=== PATIENT | male | born 1985 | race Caucasian/White ===

== ENCOUNTER 2020-12-06 02:15 | Emergency (ER) | payer SELFPAY ==
[~2020-12-06] VITALS: Ht 177.8 cm; Wt 104.3 kg
[2020-12-06 02:25] VITALS: BP 134/72
[2020-12-06 04:14] LABS: APPEARANCE,URINE CLEAR (CLEAR); BILIRUBIN,URINE NEGATIVE (NEGATIVE); BLOOD, URINE 1+ (NEGATIVE); COLOR,URINE YELLOW (YELLOW); LEUKOCYTE ESTERASE ,URINE NEGATIVE (NEGATIVE); NITRITE, URINE NEGATIVE (NEGATIVE); UGLUCOSE NEGATIVE (NEGATIVE)
[2020-12-06] MEDS ORDERED: CLOT1CRE TP (04:17)
[2020-12-06 04:23] LABS: WBC,URINE 0-5 /HPF (0-5)
[2020-12-06 04:30] VITALS: BP 110/62
== END 2020-12-06 04:30 | disposition home or self-care (01) ==
LOC: MED 02:15
DX: N48.1 Balanitis (principal); Z79.899 Other long term (current) drug therapy
CPT/HCPCS: 81001; 82948; 99283

== ENCOUNTER 2021-10-24 07:34 | Emergency (ER) | payer MEDICAID ==
[~2021-10-24] VITALS: Ht 175.3 cm; Wt 98.9 kg
[~2021-10-24 07:34] MED LIST: CLOT1CRE TP
[2021-10-24 07:36] VITALS: BP 135/99
[2021-10-24] MEDS ORDERED: FAMOTIDINE 20 MG/2 ML VIAL IVP ONE (07:50)
[2021-10-24] MEDS ORDERED: MORPHINE SULFATE 4 MG/ML SYR IVP ONE (07:50)
[2021-10-24] MEDS ORDERED: NACL 0.9% 1,000 ML IV SCH (07:50)
[2021-10-24] MEDS ORDERED: ONDANSETRON 4 MG/2 ML VIAL IVP ONE (07:50)
[2021-10-24 08:30] LABS: BASOPHILS # (AUTO) 0.1 K/uL (0.00-0.22); BASOPHILS % (AUTO) 0.4 % (0.0-2.0); EOSINOPHILS # (AUTO) 0.1 K/uL (0-0.4); EOSINOPHILS % (AUTO) 0.4 % (0.0-4.0); HEMATOCRIT 36.3 % (36-52); HEMOGLOBIN 12.1 g/dL (12.0-18.0); MEAN CORPUSCULAR HEMOGLOBIN 30 pg (27-31); MEAN CORPUSCULAR HGB CONC 33 g/dL (33-37); MEAN CORPUSCULAR VOLUME 89.2 fL (80-94); MONOCYTES # (AUTO) 1.3 K/uL (0.8-1.0); MONOCYTES % (AUTO) 7.1 % (1.7-9.3); NEUTROPHILS # (AUTO) 14.8 K/uL (1.8-7.7); NEUTROPHILS % (AUTO) 81.1 % (42.2-75.2); PLATELET COUNT (AUTO) 390 K/uL (140-450); RED BLOOD CELL COUNT(AUTO) 4.07 MIL/uL (4.20-6.10); RED CELL DISTRIBUTION WIDTH 13.3 % (11.6-13.7); WHITE BLOOD COUNT (AUTO) 18.3 K/uL (4.8-10.8)
[2021-10-24 08:48] LABS: ALBUMIN 3.4 g/dL (3.4-5.0); ANION GAP 9.6 (8-16); CARBON DIOXIDE 33.5 mmol/L (21-32); POTASSIUM 4.1 mmol/L (3.5-5.1); TOTAL BILIRUBIN 0.4 mg/dL (0.0-1.0)
[2021-10-24] MEDS ORDERED: ONDA-188 PO (10:52)
[2021-10-24] MEDS ORDERED: ACET-8386 PO (10:52)
[2021-10-24 10:57] VITALS: BP 124/70
== END 2021-10-24 10:57 | disposition home or self-care (01) ==
LOC: MED 07:34
DX: K80.20 Calculus of gallbladder without cholecystitis without obstruction (principal); D72.829 Elevated white blood cell count, unspecified; F12.90 Cannabis use, unspecified, uncomplicated; Z79.899 Other long term (current) drug therapy
CPT/HCPCS: 76705; 80053; 83690; 85025; 96361; 96374; 96375; 99284; J2270; J2405; J3490; J7030; Q0092

== ENCOUNTER 2021-12-12 23:40 | Emergency (ER) | payer MEDICAID ==
[~2021-12-12] VITALS: Ht 175.3 cm; Wt 102.5 kg
[~2021-12-12 23:40] MED LIST changes: +ACET-8386 PO; +ONDA-188 PO
[2021-12-12 23:54] VITALS: BP 130/90
--- NOTE | 2021-12-12 23:54 | NUR ---
to bed ambulatory
[2021-12-12] MEDS ORDERED: KETOROLAC 30 MG/ML VIAL IVP ONE (23:55)
[2021-12-12] MEDS ORDERED: ONDANSETRON 4 MG/2 ML VIAL IVP ONE (23:55)
[2021-12-12] MEDS ORDERED: NACL 0.9% 1,000 ML IV SCH (23:55)
--- NOTE | 2021-12-13 | NUR ---
PT AMBULATED TO ED 9, PT PLACED ON MONITOR, PT C/O EPIGASTRIC PAIN WITH N/V X 2 DAYS, PT UNABLE TO EAT OR DRINK X FEW DAYS. NKDA, DENIES ANY MEDICAL HISTORY
[2021-12-13 00:21] LABS: BASOPHILS # (AUTO) 0.1 K/uL (0.00-0.22); EOSINOPHILS # (AUTO) 0.1 K/uL (0-0.4); EOSINOPHILS % (AUTO) 0.5 % (0.0-4.0); HEMATOCRIT 34.8 % (36-52); HEMOGLOBIN 11.3 g/dL (12.0-18.0); LYMPHOCYTES # (AUTO) 1.8 K/uL (2.0-11.5); LYMPHOCYTES % (AUTO) 14.2 % (20.5-51.1); MEAN CORPUSCULAR HEMOGLOBIN 25 pg (27-31); MEAN CORPUSCULAR HGB CONC 32 g/dL (33-37); MEAN CORPUSCULAR VOLUME 77.9 fL (80-94); MONOCYTES # (AUTO) 0.9 K/uL (0.8-1.0); MONOCYTES % (AUTO) 7.2 % (1.7-9.3); NEUTROPHILS # (AUTO) 9.5 K/uL (1.8-7.7); NEUTROPHILS % (AUTO) 77.1 % (42.2-75.2); PLATELET COUNT (AUTO) 590 K/uL (140-450); RED BLOOD CELL COUNT(AUTO) 4.47 MIL/uL (4.20-6.10); RED CELL DISTRIBUTION WIDTH 17.4 % (11.6-13.7); WHITE BLOOD COUNT (AUTO) 12.3 K/uL (4.8-10.8)
[2021-12-13 00:39] LABS: ALBUMIN 3.5 g/dL (3.4-5.0); ANION GAP 10.2 (8-16); CARBON DIOXIDE 34.9 mmol/L (21-32); CREATININE 1.1 mg/dL (0.6-1.3); POTASSIUM 4.1 mmol/L (3.5-5.1); TOTAL BILIRUBIN 0.2 mg/dL (0.0-1.0)
--- NOTE | 2021-12-13 00:46 | NUR ---
PT RETURN FROM ULTRASOUND
[2021-12-13] MEDS ORDERED: KETOROLAC 30 MG/ML VIAL ONE (00:56)
[2021-12-13 01:06] LABS: APPEARANCE,URINE SL CLOUDY (CLEAR); BILIRUBIN,URINE NEGATIVE (NEGATIVE); BLOOD, URINE NEGATIVE (NEGATIVE); COLOR,URINE YELLOW (YELLOW); LEUKOCYTE ESTERASE ,URINE NEGATIVE (NEGATIVE); NITRITE, URINE NEGATIVE (NEGATIVE); PH,URINE 7.5 (5.0-9.0); UGLUCOSE NEGATIVE (NEGATIVE)
--- NOTE | 2021-12-13 02:00 | NUR ---
PT RESTING IN BED, DENIES ANY DISCOMFORT AT PRESENT TIME.
[2021-12-13] MEDS ORDERED: HYDR-5080 PO (04:51)
[2021-12-13 05:00] VITALS: BP 126/67
--- NOTE | 2021-12-13 05:00 | NUR ---
Patient discharged with v/s stable. Written and verbal after care instructions given and explained. Patient verbalized understanding. Ambulatory with steady gait. All questions addressed prior to discharge. Advised to follow up with PMD.
== END 2021-12-13 05:00 | disposition home or self-care (01) ==
LOC: MED 23:40
DX: K80.20 Calculus of gallbladder without cholecystitis without obstruction (principal); R11.2 Nausea with vomiting, unspecified; Z79.891 Long term (current) use of opiate analgesic; Z79.899 Other long term (current) drug therapy
CPT/HCPCS: 36415; 74176; 76705; 80053; 81003; 83690; 85025; 96361; 96374; 96375; 99284; J1885; J2405; J7030; Q0092

== ENCOUNTER 2022-07-22 13:18 | Emergency (ER) | payer SELFPAY ==
[~2022-07-22] VITALS: Ht 175.3 cm; Wt 86.2 kg
[~2022-07-22 13:18] MED LIST changes: -ACET-8386 PO; +ACET-8905 PO; +HYDR-5080 PO
[2022-07-22 14:39] VITALS: BP 123/84
[2022-07-22 15:35] LABS: BASOPHILS # (AUTO) 0.1 K/uL (0.00-0.22); BASOPHILS % (AUTO) 0.6 % (0.0-2.0); EOSINOPHILS % (AUTO) 0.4 % (0.0-4.0); HEMATOCRIT 34.4 % (36-52); LYMPHOCYTES # (AUTO) 3.8 K/uL (2.0-11.5); LYMPHOCYTES % (AUTO) 34.6 % (20.5-51.1); MEAN CORPUSCULAR HEMOGLOBIN 26 pg (27-31); MEAN CORPUSCULAR HGB CONC 32 g/dL (33-37); MEAN CORPUSCULAR VOLUME 82.4 fL (80-94); MONOCYTES # (AUTO) 0.6 K/uL (0.8-1.0); MONOCYTES % (AUTO) 5.3 % (1.7-9.3); NEUTROPHILS # (AUTO) 6.5 K/uL (1.8-7.7); NEUTROPHILS % (AUTO) 59.1 % (42.2-75.2); PLATELET COUNT (AUTO) 343 K/uL (140-450); RED BLOOD CELL COUNT(AUTO) 4.18 MIL/uL (4.20-6.10); RED CELL DISTRIBUTION WIDTH 20.8 % (11.6-13.7); WHITE BLOOD COUNT (AUTO) 11.1 K/uL (4.8-10.8)
--- NOTE | 2022-07-22 15:36 | NUR ---
Pt approached me in lobby and states his vomit is now "red" and he had "dark" colored stool.
[2022-07-22 15:48] LABS: ALBUMIN 3.4 g/dL (3.4-5.0); ANION GAP 11.1 (8-16); CARBON DIOXIDE 28.5 mmol/L (21-32); POTASSIUM 4.6 mmol/L (3.5-5.1); TOTAL BILIRUBIN 0.2 mg/dL (0.0-1.0)
[2022-07-22] MEDS ORDERED: FAMOTIDINE 20 MG TAB PO ONE (16:15)
[2022-07-22] MEDS ORDERED: ONDANSETRON 4 MG ODT PO ONE (16:15)
[2022-07-22] MEDS ORDERED: ALUMINUM HYD/MAG/SIMETHICONE 30 ML UDC PO ONE (16:15)
[2022-07-22] MEDS ORDERED: FAMO-90 PO (16:26)
[2022-07-22] MEDS ORDERED: SUCR1TAB35 PO (16:26)
[2022-07-22] MEDS ORDERED: ONDA-188 PO (16:26)
[2022-07-22 16:33] VITALS: BP 123/84
--- NOTE | 2022-07-22 16:33 | NUR ---
Patient discharged with v/s stable. Written and verbal after care instructions FOR PEPCID [employer] given and explained. Patient alert, oriented and verbalized understanding of instructions. Ambulatory with steady gait. All questions addressed prior to discharge. ID band removed. Patient advised to follow up with PMD. Rx of PEPCID,ZOFRAN ODT AND CARAFATE given. Opportunity to ask questions provided and answered.
== END 2022-07-22 16:33 | disposition home or self-care (01) ==
LOC: MED 13:18
DX: K27.9 Peptic ulcer, site unspecified, unspecified as acute or chronic, without hemorrhage or perforation (principal); Z79.899 Other long term (current) drug therapy
CPT/HCPCS: 36415; 80053; 83690; 85025; 99284; Q0162

== ENCOUNTER 2023-01-19 15:39 | Inpatient (IN) | payer MEDICAID ==
[~2023-01-19] VITALS: Ht 175.3 cm; Wt 84.0 kg
[2023-01-19] VITALS (15 sets, daily range): BP systolic 30–160; BP diastolic 17–69; PULSE 88–130; RESP 25–43; TEMP 95.5–97.4; O2SAT 61–98
[~2023-01-19 15:39] MED LIST changes: +FAMO-90 PO; +SUCR1TAB35 PO
[2023-01-19] MEDS ORDERED: ALBUTEROL SULFATE/IPRATROPIU 3 ML SOL IH ONE (16:10)
[2023-01-19] MEDS ORDERED: PROPOFOL 1000 MG/100 ML PREMIX 100 ML IV STA (17:34)
[2023-01-19] MEDS ORDERED: INTUBATION KIT MC ONE (17:35)
[2023-01-19] MEDS ORDERED: SUCCINYLCHOLINE CHLORIDE 200 MG/10 ML VIAL IVP ONE (17:35)
[2023-01-19] MEDS ORDERED: ETOMIDATE 20 MG/10 ML VIAL IVP ONE (17:35)
[2023-01-19 17:38] LABS: ALBUMIN 2.4 g/dL (3.4-5.0); ANION GAP 33.3 (8-16); CALCIUM 10.9 mg/dL (8.5-10.1); CARBON DIOXIDE 12.5 mmol/L (21-32); POTASSIUM 4.8 mmol/L (3.5-5.1); TOTAL BILIRUBIN 0.8 mg/dL (0.0-1.0); TOTAL PROTEIN, SERUM 7.5 g/dL (6.4-8.2)
[2023-01-19 17:45] LABS: RED BLOOD CELL COUNT(AUTO) 5.94 MIL/uL (4.20-6.10); WHITE BLOOD COUNT (AUTO) 21.6 K/uL (4.8-10.8)
[2023-01-19 17:46] LABS: HEMATOCRIT 42.9 % (36-52); HEMOGLOBIN 12.1 g/dL (12.0-18.0); MEAN CORPUSCULAR HEMOGLOBIN 20 pg (27-31); MEAN CORPUSCULAR HGB CONC 28 g/dL (33-37); MEAN CORPUSCULAR VOLUME 72.3 fL (80-94); PLATELET COUNT (AUTO) 711 K/uL (140-450); RED CELL DISTRIBUTION WIDTH 20.7 % (11.6-13.7)
[2023-01-19 17:47] LABS: LYMPHOCYTES % (MANUAL) 42 % (20-46); METAMYELOCYTES % 1 % (0-0); MONOCYTES % (MANUAL) 3 % (5-12); PLATELET ESTIMATE INCREASED; PROMYELOCYTES % 3 % (0-0)
[2023-01-19 17:54] LABS: CREATININE 4.5 mg/dL (0.6-1.3)
[2023-01-19] MEDS ORDERED: ENOXAPARIN 80 MG/0.8 ML SYR SUBQ ONE (18:00)
[2023-01-19] MEDS ORDERED: NACL 0.9% 2,000 ML IV SCH (18:05)
[2023-01-19] MEDS ORDERED: EPINEPHrine 1 mg/mL 3 MG in DEXTROSE 5% 250 ML IV ONE (19:05)
[2023-01-19 19:15] LABS: LACTIC ACID 16.4 mmol/L (0.4-2.0)
[2023-01-19] MEDS ORDERED: EPINEPHrine 1 MG/ML AMP ONE ×6 (19:21→23:00)
[2023-01-19] MEDS ORDERED: NOREPINEPHRINE 4 MG/4 ML VIAL IV ONE ×4 (19:38→23:36)
[2023-01-19] MEDS ORDERED: OCTREOTIDE ACETATE 1.25 MG in NACL 0.9% 250 ML IV SCH ×2 (19:45→22:25)
[2023-01-19] MEDS ORDERED: NOREPINEPHRINE 4 MG in DEXTROSE 5% 250 ML IV ONE (19:55)
[2023-01-19] MEDS ORDERED: cefTRIAXone 1,000 MG VIAL ONE (20:49)
[2023-01-19] MEDS ORDERED: PIPERACILLIN/TAZOBACTAM 2.25 GM VIAL IV ONE (21:28)
[2023-01-19] MEDS ORDERED: VASOPRESSIN 40 UNITS in NACL 0.9% 250 ML IV PRN (22:00)
[2023-01-19] MEDS: NOREPINEPHRINE 8 MG in DEXTROSE 5% 250 ML IV PRN ×2 (22:03→23:51)
[2023-01-19] MEDS: PIPERACILLIN/TAZOBACTAM 2.25 GM in DEXTROSE 5% 50 ML IV SCH (22:04)
[2023-01-19] MEDS: EPINEPHrine 1 mg/mL 3 MG in DEXTROSE 5% 250 ML IV PRN ×3 (22:07→23:05)
[2023-01-19] MEDS ORDERED: OCTREOTIDE ACETATE 1000 MCG/5 ML VIAL ONE (22:10)
[2023-01-19] MEDS ORDERED: VASOPRESSIN 20 UNITS/ML VIAL ONE (22:37)
[2023-01-19] MEDS ORDERED: PHENYLEPHRINE 10 MG/ML VIAL ONE (23:32)
[2023-01-19] MEDS: PHENYLEPHRINE 20 MG in NACL 0.9% 250 ML IV PRN (23:48)
[2023-01-20] VITALS (22 sets, daily range): BP systolic 28–157; BP diastolic 15–74; PULSE 76–119; RESP 18–37; TEMP 95.3–96.5; O2SAT 32–100
[2023-01-20 00:31] LABS: FLU A ANTIGEN negative (NEGATIVE); FLU B ANTIGEN NEGATIVE (NEGATIVE)
[2023-01-20] MEDS: EPINEPHrine 1 mg/mL 3 MG in DEXTROSE 5% 250 ML IV PRN ×11 (00:33→10:40)
[2023-01-20] MEDS: NOREPINEPHRINE 8 MG in DEXTROSE 5% 250 ML IV PRN ×6 (01:47→09:54)
[2023-01-20] MEDS ORDERED: PHENYLEPHRINE 10 MG/ML VIAL ONE ×2 (02:17→03:25)
[2023-01-20] MEDS: PHENYLEPHRINE 20 MG in NACL 0.9% 250 ML IV PRN ×5 (02:24→10:40)
[2023-01-20] MEDS ORDERED: PIPERACILLIN/TAZOBACTAM 2.25 GM VIAL IV ONE (05:22)
[2023-01-20] MEDS: PIPERACILLIN/TAZOBACTAM 2.25 GM in DEXTROSE 5% 50 ML IV SCH (05:33)
[2023-01-20 05:58] LABS: EOSINOPHILS # (AUTO) 0.1 K/uL (0-0.4); EOSINOPHILS % (AUTO) 0.5 % (0.0-4.0); HEMATOCRIT 29.9 % (36-52); LYMPHOCYTES # (AUTO) 12.9 K/uL (2.0-11.5); LYMPHOCYTES % (AUTO) 50.9 % (20.5-51.1); MEAN CORPUSCULAR HEMOGLOBIN 21 pg (27-31); MEAN CORPUSCULAR HGB CONC 24 g/dL (33-37); MEAN CORPUSCULAR VOLUME 87.9 fL (80-94); MONOCYTES # (AUTO) 12.2 K/uL (0.8-1.0); NEUTROPHILS # (AUTO) 0.2 K/uL (1.8-7.7); NEUTROPHILS % (AUTO) 0.6 % (42.2-75.2); PLATELET COUNT (AUTO) 235 K/uL (140-450); RED BLOOD CELL COUNT(AUTO) 3.41 MIL/uL (4.20-6.10); RED CELL DISTRIBUTION WIDTH 21.4 % (11.6-13.7)
[2023-01-20 06:06] LABS: WHITE BLOOD COUNT (AUTO) 25.4 K/uL (4.8-10.8)
[2023-01-20 06:25] LABS: ANION GAP 41.2 (8-16); CALCIUM 10.1 mg/dL (8.5-10.1)
[2023-01-20 06:28] LABS: CARBON DIOXIDE 7.4 mmol/L (21-32)
[2023-01-20 06:30] LABS: POTASSIUM 9.6 mmol/L (3.5-5.1)
[2023-01-20] MEDS ORDERED: CALCIUM CHLORIDE 10% 1,000 MG in NACL 0.9% 100 ML IV SCH (07:35)
[2023-01-20] MEDS ORDERED: SODIUM BICARBONATE 8.4% PFS 50 MEQ/50 ML SYR IVP SCH ×3 (07:35→10:52)
[2023-01-20] MEDS ORDERED: SODIUM BICARBONATE 8.4% PFS 50 MEQ/50 ML SYR IVP ONE (08:00)
[2023-01-20] MEDS ORDERED: SODIUM BICARBONATE 8.4% 100 MEQ in DEXTROSE 5% 1,000 ML IV SCH (08:10)
[2023-01-20] MEDS ORDERED: VANCOMYCIN PER PHARMACY MC PRN ×2 (08:15→09:35)
[2023-01-20] MEDS ORDERED: HYDROCORTISONE NA SUCC 100 MG/2 ML VIAL IV SCH ×2 (08:29→12:00)
[2023-01-20] MEDS ORDERED: SODIUM BICARBONATE 8.4% 150 MEQ in DEXTROSE 5% 1,000 ML IV SCH (08:31)
[2023-01-20] MEDS ORDERED: INSULIN REGULAR, HUMAN 100 UNIT/ML VIAL SUBQ STA (08:51)
[2023-01-20] MEDS ORDERED: DEXTROSE 50% 50 ML SYR IVP SCH (08:51)
[2023-01-20] MEDS ORDERED: VANCOMYCIN 1.25GM PREMIX 250 ML IV SCH (09:00)
[2023-01-20] MEDS ORDERED: INSULIN REGULAR, HUMAN 100 UNIT/ML VIAL IVP SCH (09:05)
[2023-01-20] MEDS ORDERED: HYDROcodone/APAP 7.5/325 MG 1 TAB PO PRN (09:15)
[2023-01-20] MEDS ORDERED: ACETAMINOPHEN 325 MG TAB PO PRN (09:15)
[2023-01-20] MEDS ORDERED: MAG SULF 2000 MG/WATER PREMIX 50 ML IV PRN (09:15)
[2023-01-20] MEDS ORDERED: POTASSIUM CHLORIDE 10 MEQ TABER PO PRN (09:15)
[2023-01-20] MEDS ORDERED: NACL 0.9% 1,000 ML IV SCH (09:15)
[2023-01-20] MEDS ORDERED: ONDANSETRON 4 MG/2 ML VIAL IVP PRN (09:15)
[2023-01-20] MEDS ORDERED: NOREPINEPHRINE 16 MG in DEXTROSE 5% 250 ML IV PRN (09:40)
[2023-01-20] MEDS ORDERED: EPINEPHrine 1 mg/mL 10 MG in DEXTROSE 5% 250 ML IV PRN (10:40)
[2023-01-20] MEDS ORDERED: PHENYLEPHRINE 40 MG in NACL 0.9% 250 ML IV PRN (10:45)
[2023-01-20 10:54] LABS: PROTHROMBIN TIME > 120.0 secs (10.8-13.4)
[2023-01-20 10:55] LABS: INR > 9.00 (0.8-1.2)
[2023-01-20 10:56] LABS: PARTIAL THROMBOPLASTIN TIME > 150.0 secs (22-35.6)
[2023-01-20 11:02] LABS: CHOL/HDL RATIO 1.1 (1-4.5); FREE T4 (FREE THYROXINE) 0.87 ng/dL (0.76-1.46); THYROID STIMULATING HORMONE 2.27 uIU/mL (0.34-3.74)
[2023-01-20 11:56] LABS: LACTIC ACID 19.3 mmol/L (0.4-2.0)
[2023-01-20] MEDS ORDERED: DOCUSATE SODIUM 100 MG GELCAP PO SCH (21:00)
[2023-01-21] MEDS ORDERED: PANTOPRAZOLE 40 MG INJ VIAL IVP SCH (09:00)
== END 2023-01-20 11:58 | DRG 720 ==
LOC: MED 15:39 → MIC 19:54
PROC: 06HY33Z Insertion of Infusion Device into Lower Vein, Percutaneous Approach (ICD-10-PCS; principal; 2023-01-19)
PROC: 5A1935Z Respiratory Ventilation, Less than 24 Consecutive Hours (ICD-10-PCS; 2023-01-19)
PROC: B54BZZA Ultrasonography of Right Lower Extremity Veins, Guidance (ICD-10-PCS; 2023-01-19)
PROC: 0BH17EZ Insertion of Endotracheal Airway into Trachea, Via Natural or Artificial Opening (ICD-10-PCS; 2023-01-19)
PROC: 5A12012 Performance of Cardiac Output, Single, Manual (ICD-10-PCS; 2023-01-20)
DX: A41.9 Sepsis, unspecified organism (principal); I46.9 Cardiac arrest, cause unspecified; D65 Disseminated intravascular coagulation [defibrination syndrome]; J96.01 Acute respiratory failure with hypoxia; N17.0 Acute kidney failure with tubular necrosis; K22.11 Ulcer of esophagus with bleeding; G93.40 Encephalopathy, unspecified; J18.9 Pneumonia, unspecified organism; K92.2 Gastrointestinal hemorrhage, unspecified; Z66 Do not resuscitate; R65.21 Severe sepsis with septic shock; E87.20 Acidosis, unspecified; Z20.822 Contact with and (suspected) exposure to COVID-19; E87.5 Hyperkalemia; F15.10 Other stimulant abuse, uncomplicated; Z79.899 Other long term (current) drug therapy; D62 Acute posthemorrhagic anemia; E86.0 Dehydration
CPT/HCPCS: 31500; 36415; 71045; 80048; 80053; 82140; 82150; 82803; 82948; 83036; 83605; 83690; 83880; 84439; 84443; 84484; 85025; 85379; 85610; 85730; 86886; 86900; 86901; 86920; 87081; 92950; 93005; 94002; 94003; 99291; J0171; J0330; J0696; J1720; J1815; J2354; J2370; J2543; J2704; J3372; J3490; J7030; J7060